=== PATIENT | female | born 1995 | race Caucasian/White ===

== ENCOUNTER 2017-11-23 06:51 | Emergency (ER) | payer MEDICAID ==
[2017-11-23] MEDS: IBUPROFEN 800 MG TAB PO (07:40)
== END 2017-11-23 08:55 | disposition home or self-care (01) ==
LOC: FTE 06:51
DX: J11.1 Influenza due to unidentified influenza virus with other respiratory manifestations (principal)
CPT/HCPCS: 99283; Z7502

== ENCOUNTER 2019-04-29 12:20 | Emergency (ER) | payer BC, MEDICAID | END 2019-04-29 13:38 | disposition home or self-care (01) | LOC: FTE 12:20 | DX: J35.8 Other chronic diseases of tonsils and adenoids (principal) | CPT/HCPCS: 99282; Z7502 ==